=== PATIENT | male | born 1975 | race Caucasian/White ===

== ENCOUNTER 2023-01-11 18:04 | Emergency (ER) | payer BC, SELFPAY ==
--- NOTE | ~2023-01-11 | XR_ITS ---
EXAM: XR knee LT 3V DATE: 01/11/2023 18:45 HISTORY: left knee pain no injury . COMPARISON: None available. FINDINGS: Normal mineralization. No fracture or dislocation. No lytic or blastic lesion. Status post ACL repair. Bipartite patella. Mild medial joint space narrowing. Mild tricompartmental osteophytosi s. Large volume joint fluid. No erosion or periosteal change. Soft tissues within normal limits. IMPRESSION: No acute osseous finding in the left knee. Large left knee joint effusion. Mild tricompar tmental osteoarthritis. Reviewed, dictated and finalized at location K. IMPRESSION: No acute osseous finding in the left knee. Large left knee joint ef fusion. Mild tricompartmental osteoarthritis.
[2023-01-11 18:17] VITALS: BP 137/67; PULSE 71; RESP 16; TEMP 36.7; O2SAT 96
--- NOTE | 2023-01-11 18:27 | ED.EXTPRO ---
HPI - Extremity Problem General Chief complaint: Extremity Problem,Nontraumatic Stated complaint: Lt Knee Pain Time Seen by Provider: 01/11/23 18:22 Source: patient and RN notes reviewed Mode of arrival: ambulatory Limitations: no limitations History of Present Illness HPI Narrative: Patient presents today complaining of left knee pain x5 days. Denies any injury or trauma. Denies numbness or tingling. Patient is in town from [place] working. States increased pain with bending of the knee. Rates his pain 1/10 at rest. He has not tried any [id number] treatment prior to arrival. Reports history of ACL and MCL repair in 1997, but denies any ongoing issues from that surgery. Related Data Home Medications Medication Instructions Recorded Confirmed No Home Medications 01/11/23 01/11/23 Allergies Allergy/AdvReac Type Severity Reaction Status Date / Time Penicillins AdvReac Mild Hives Verified 01/11/23 18:20 Review of Systems Review of Systems: CONSTITUTIONAL: Denies body aches, fever, chills, or sweats. EYES: Denies visual changes, redness, or discharge. ENT: Denies rhinorrhea, congestion, sore throat, or otalgia. CARDIOVASCULAR: Denies chest pain, palpitations, or edema. RESPIRATORY: Denies cough or dyspnea. GASTROINTESTINAL: Denies abdominal pain, nausea, vomiting, or diarrhea. GENITOURINARY: Denies dysuria or hematuria. SKIN: Denies rash, itching, or wounds. MUSCULOSKELETAL: Denies back pain, or myalgia.+ left knee pain NEUROLOGIC: Denies headache, numbness, tingling, or weakness. PSYCH: Denies depression or anxiety. PMFSH Comments At time of signature, I have reviewed and agree with nursing past medical, surgical, social and family history unless otherwise noted. Please see nursing chart for further information. There is no relevant family history pertinent to the presenting complaint Exam Narrative: GENERAL: Well-appearing, well-nourished, and in no acute distress. HEAD: Normocephalic, atraumatic. EYES: EOMI. No redness or drainage. Conjunctivae normal. ENT: Mucous membranes pink and moist. NECK: Normal AROM. CHEST: No respiratory distress. EXTREMITIES: Left knee: Tenderness to the medial joint line with swelling noted about the knee. No bony tenderness of the knee. No tenderness to the patellar tendon. Pain with full flexion and with extension and 90?. Pain with internal and external rotation. Distal sensation intact. Capillary refill normal. Pedal pulse normal. No ecchymosis or erythema noted. No increased warmth. SKIN: Warm, dry, no rash. Capillary refill normal. Normal skin turgor. NEURO: No focal deficits. Alert and oriented x3. Gait steady. PSYCH: Normal affect. No signs of depression or anxiety. Course Course Level of Care: Express Care Visit Vital Signs Vital signs: Vital Signs Temperature 98.0 F 01/11/23 18:17 Pulse Rate 71 01/11/23 18:17 Respiratory Rate 16 01/11/23 18:17 Blood Pressure 137/67 01/11/23 18:17 Pulse Oximetry 96 01/11/23 18:17 Oxygen Delivery Room Air 01/11/23 18:17 Temperature 98.0 F 01/11/23 18:17 Pulse Rate 71 01/11/23 18:17 Respiratory Rate 16 01/11/23 18:17 Blood Pressure 137/67 01/11/23 18:17 Pulse Oximetry 96 01/11/23 18:17 Oxygen Delivery Room Air 01/11/23 18:17 Reviewed. Pt has been instructed to follow up with his PCP regarding his elevated blood pressure today. MDM - Extremity (Nontraumatic) MDM Narrative Medical decision making narrative: X-ray negative for fracture, but does show a large joint effusion. Recommend orthopedic follow-up. No prescription medications indicated at this time. Anticipatory guidance given. Differential Diagnosis Differential diagnosis: Likely other (Joint effusion, osteoarthritis, ligamental injury) Imaging Data Radiologist's impression: ITS Impressions Knee X-Ray 01/11/23 18:52 IMPRESSION: No acute osseous finding in the left knee. Large left
== END 2023-01-11 19:10 | disposition home or self-care (01) ==
PROVIDERS: Emergency Provider Nurse Practitioner
DX: M25.462 Effusion, left knee (principal); E78.00 Pure hypercholesterolemia, unspecified
CPT/HCPCS: 73562; 99213; G0463